=== PATIENT | female | born 1960 | race Caucasian/White ===

== ENCOUNTER 2017-06-03 13:12 | Emergency (ER) | payer OTHER ==
[~2017-06-03] VITALS: Ht 162.6 cm; Wt 65.9 kg
[~2017-06-03 13:12] MED LIST: ASPIR 8181 M1 PO; NASONEX17 GM NS
[2017-06-03 15:59] VITALS: BP 161/87
== END 2017-06-03 16:00 | disposition home or self-care (01) ==
LOC: EME 13:12
DX: S39.012A Strain of muscle, fascia and tendon of lower back, initial encounter (principal); V49.40XA Driver injured in collision with unspecified motor vehicles in traffic accident, initial encounter; E11.9 Type 2 diabetes mellitus without complications; M81.0 Age-related osteoporosis without current pathological fracture; I25.2 Old myocardial infarction; Z87.891 Personal history of nicotine dependence
CPT/HCPCS: 72100; 99281; 99284